=== PATIENT | male | born 1940 | race Caucasian/White ===

== ENCOUNTER 2018-11-23 13:38 | Observation (INO) ==
[2018-11-23 15:50] LABS: Basophils # 0.1 10*3/uL (0.0-0.2); Basophils % 0.8 % (0.0-0.8); Eosinophils # 0.2 10*3/uL (0.0-0.87); Eosinophils % 2.1 % (0.00-10.9); Hematocrit 46.1 VOL% (42.0-52.0); Hemoglobin 15.2 GM/DL (14.0-18.0); Immature Granulocytes % 0.3 %; Immature Granulocytes Absolute 0.02 #; Lymphocytes # 1.4 10*3/uL (1.4-4.0); Lymphocytes % 20.3 % (21.2-54.2); Mean Corpuscular Hemoglobin 32 PG (27-34); Mean Corpuscular Volume 97.1 FL (87-102); Mean Platelet Volume 12.8 FL (9.6-12.0); Monocytes # 0.6 10*3/uL (0.11-0.8); Monocytes % 7.8 % (1.7-12.7); Neutrophils # 4.9 10*3/uL (1.4-7.4); Neutrophils % 68.7 % (38.7-73.9); Platelet Count 159 T/CUMM (130-400); Red Blood Count 4.75 MC/CUMM (3.8-5.5); White Blood Count 7.1 T/CUMM (4-12)
[2018-11-23 15:59] LABS: INR 2.5; PT Patient Result 26.8 SECS; Partial Thromboplastin Time 34.7 SECS (0-40)
[2018-11-23 16:14] LABS: Albumin 3.9 G/DL (3.4-5.0); Bilirubin,Total 0.5 MG/DL (0.2-1.0); Osmolality,Calculated 286.3 MOS/KG (273-304); Potassium 3.4 MMOL/L (3.5-5.1); Total Protein 6.7 G/DL (6.4-8.3)
[2018-11-23] MEDS ORDERED: guaiFENesin/DM ER 600-30 MG TABLET PO PRN (16:23)
[2018-11-23] MEDS ORDERED: ACETAMINOPHEN 325 MG TABLET PO PRN (16:23)
[2018-11-23] MEDS ORDERED: MAGNESIUM SULF RIDER 4 GM in PREMIX 1 EACH IV PRN (16:23)
[2018-11-23] MEDS ORDERED: ZALEPLON 5 MG CAPSULE PO PRN (16:23)
[2018-11-23] MEDS ORDERED: ONDANSETRON 4 MG/2 ML VIAL IV PRN (16:23)
[2018-11-23] MEDS ORDERED: DOCUSATE SODIUM 100 MG CAPSULE PO PRN (16:23)
[2018-11-23] MEDS ORDERED: POTASSIUM CHLORIDE 20 MEQ TABLET PO PRN (16:23)
[2018-11-23] MEDS ORDERED: MAGNESIUM SULF RIDER 2 GM in PREMIX 1 EACH IV PRN (16:23)
[2018-11-23] MEDS ORDERED: MORPHINE 4 MG/1 ML VIAL IV PRN (16:23)
[2018-11-23] MEDS ORDERED: BISACODYL 5 MG TABLET PO PRN (16:23)
[2018-11-23] MEDS ORDERED: diphenhydrAMINE CAP 25 MG CAPSULE PO PRN (16:23)
[2018-11-23] MEDS ORDERED: ENOXAPARIN 40 MG/0.4 ML SYRINGE SUBCUT SCH (16:30)
[2018-11-23] MEDS ORDERED: WARFARIN 4 MG TABLET PO SCH (18:00)
[2018-11-23 19:38] LABS: Troponin I 0.055 NG/ML (0.00-0.045)
[2018-11-23] MEDS: SOTALOL 80 MG TABLET PO SCH (21:25)
[2018-11-23] MEDS: POTASSIUM CHLORIDE 10 MEQ TABLET PO SCH (21:25)
[2018-11-23 21:53] LABS: Troponin I 0.059 NG/ML (0.00-0.045)
[2018-11-24 05:39] LABS: Basophils % 0.7 % (0.0-0.8); Eosinophils # 0.2 10*3/uL (0.0-0.87); Eosinophils % 3.2 % (0.00-10.9); Hematocrit 41.4 VOL% (42.0-52.0); Hemoglobin 13.5 GM/DL (14.0-18.0); Immature Granulocytes % 0.2 %; Immature Granulocytes Absolute 0.01 #; Lymphocytes # 1.9 10*3/uL (1.4-4.0); Lymphocytes % 32.6 % (21.2-54.2); Mean Corpuscular HGB Conc 32.6 GM/DL (32-36); Mean Corpuscular Hemoglobin 31 PG (27-34); Mean Corpuscular Volume 96.1 FL (87-102); Mean Platelet Volume 12.3 FL (9.6-12.0); Monocytes # 0.6 10*3/uL (0.11-0.8); Monocytes % 10.4 % (1.7-12.7); Neutrophils # 3.2 10*3/uL (1.4-7.4); Neutrophils % 52.9 % (38.7-73.9); Platelet Count 128 T/CUMM (130-400); Red Blood Count 4.31 MC/CUMM (3.8-5.5); Red Cell Distribution Width 12.8 % (9.3-17.3)
[2018-11-24 06:02] LABS: Calcium 8.7 MG/DL (8.5-10.1); Osmolality,Calculated 285.1 MOS/KG (273-304); Potassium 3.1 MMOL/L (3.5-5.1); Thyroid Stimulating Hormone 2.69 uIU/ml (0.358-3.74)
[2018-11-24] MEDS ORDERED: POTASSIUM CHLORIDE 20 MEQ TABLET PO ONE (07:43)
[2018-11-24] MEDS ORDERED: FUROSEMIDE 80 MG TABLET PO SCH (08:00)
[2018-11-24] MEDS ORDERED: CITALOPRAM 20 MG TABLET PO SCH (09:00)
[2018-11-24] MEDS ORDERED: SPIRONOLACTONE 25 MG TABLET PO SCH (09:00)
[2018-11-24] MEDS ORDERED: PANTOPRAZOLE 40 MG TABLET PO SCH (09:00)
[2018-11-24] MEDS ORDERED: LOSARTAN 25 MG TABLET PO SCH (09:00)
[2018-11-24] MEDS ORDERED: MEXILETINE PO SCH (09:00)
[2018-11-24] MEDS ORDERED: SIMVASTATIN 40 MG TABLET PO SCH (09:00)
[2018-11-24] MEDS ORDERED: MONTELUKAST 10 MG TABLET PO SCH (09:00)
[2018-11-24] MEDS ORDERED: OMEGA 3 ACID ETHYL ESTERS 1 GM CAPSULE PO SCH (09:00)
[2018-11-24] MEDS: SOTALOL 80 MG TABLET PO SCH (09:20)
[2018-11-24] MEDS: POTASSIUM CHLORIDE 10 MEQ TABLET PO SCH (09:37)
[2018-11-24 14:06] VITALS: BP 100/66
[2018-11-28] MEDS ORDERED: WARFARIN 3 MG TABLET PO SCH (18:00)
== END 2018-11-24 13:57 | disposition home or self-care (01) ==
LOC: N.EDINP 13:38 → N.ED 13:38 → N.CC 17:03
PROVIDERS: ADMIT Internal Medicine Cardiovascular Disease; ATTEND Internal Medicine Cardiovascular Disease